=== PATIENT | male | born 1955 | race Caucasian/White ===

== ENCOUNTER 2017-01-11 17:11 | Emergency (ER) | payer OTHER ==
[~2017-01-11] VITALS: Ht 165.1 cm; Wt 80.0 kg
[2017-01-11 21:13] VITALS: BP 134/86
== END 2017-01-11 21:13 | disposition home or self-care (01) ==
LOC: ER 17:37
DX: R10.9 Unspecified abdominal pain (principal); I10 Essential (primary) hypertension
CPT/HCPCS: 99283; Z7610